=== PATIENT | female | born 1995 | race Caucasian/White ===

== ENCOUNTER 2024-07-27 19:30 | Emergency (ER) | payer OTHER, SELFPAY ==
--- NOTE | ~2024-07-27 | XR_ITS ---
CHEST RADIOGRAPH, PA AND LATERAL CLINICAL HISTORY: chest pain . COMPARISON: None available TECHNIQUE: PA and lateral views of the chest. FINDINGS The cardiomediastinal silhouette is unremarkable. The lungs are clear. Visualized osseous structures and soft tissues are unremarkable. IMPRESSION: No focal infiltrate or effusion. Reviewed, dictated and finalized at location A. ESH TECHNICIAN
--- NOTE | 2024-07-27 19:38 | ECG_ITS ---
Test Date: 2024-07-27 19:58:14 Measurements Intervals [place] Rate: 105 P: 48 [place]: 164 QRS: -3 QRSD: 108 T: 33 QT: 327 QTc: 433 Interpretive Statements SINUS TACHYCARDIA ABNORMAL RHYTHM ECG No previous ECG available for comparison Electronically Signed On 07-27-2024 23:45:13 CALL OUT OPERATOR by Bianka Colón M.D.
[2024-07-27 19:53] VITALS: BP 149/95; PULSE 105; RESP 20; TEMP 36.6; O2SAT 99
[2024-07-27 20:13] LABS: Basophils Absolute Auto 0.1 K/mm3 (0.0-0.1); Basophils Percent Auto 1.1 % (0.2-1.2); Eosinophils Absolute Auto 0.3 K/mm3 (0-0.3); Eosinophils Percent Auto 2.6 % (0-4.4); Hematocrit 43.2 % (37.0-47.0); Hemoglobin 14.7 g/dL (12.0-15.0); Immature Granulocyte Absolute 0.04 K/mm3 (0.00-0.031); Immature Granulocyte Percent A 0.3 % (0-0.5); Lymphocytes Absolute Auto 3.54 K/mm3 (0.9-3.2); Lymphocytes Percent Auto 28.9 % (18.3-44.2); Mean Corpuscular Hemoglobin 30.2 pg (26-34); Mean Corpuscular Volume 88.9 fl (80-100); Mean Platelet Volume 11.6 fl (7.4-10.4); Monocytes Absolute Auto 0.8 K/mm3 (0.1-0.6); Monocytes Percent Auto 6.4 % (2.6-8.5); Neutrophils Absolute Auto 7.4 K/mm3 (1.3-6.7); Neutrophils Percent Auto 60.7 % (45.5-73.1); Platelet Count Result 304 k/mm3 (150-375); Red Blood Count 4.86 M/mm3 (4.2-5.4); Red Cell Distribution Width 12.1 % (11.5-14.5); White Blood Count 12.2 K/mm3 (4.5-10.0)
[2024-07-27 20:23] LABS: Alanine Aminotransferase 47 U/L (6-35); Albumin Level 4.6 g/dL (3.5-5.1); Alkaline Phosphatase 90 U/L (38-126); Anion Gap 11 mmol/L (4-12); Aspartate Amino Transferase 30 U/L (14-36); Bilirubin,Total 0.6 mg/dL (0.2-1.3); Blood Urea Nitrogen 10 mg/dL (7-17); Calcium 9.4 mg/dL (8.4-10.2); Carbon Dioxide 26 mmol/L (22-30); Chloride 102 mmol/L (98-107); Estimated CRCL calculation 120 ml/min; Estimated Glomerular Filt Rate > 60; Glucose 112 mg/dL (65-110); Lipase 93 U/L (23-300); Potassium 3.7 mmol/L (3.4-5.0); Sodium 139 mmol/L (137-145)
[2024-07-27 20:26] LABS: Prothrombin Time 13.4 Seconds (11.1-14.7)
[2024-07-27 20:27] LABS: Partial Thromboplastin Time 32.3 Seconds (22.3-36.8)
[2024-07-27 20:34] LABS: Troponin I < 0.012 ng/mL (0.000-0.034)
--- NOTE | 2024-07-27 22:45 | ECG_ITS ---
Test Date: 2024-07-27 22:56:00 Measurements Intervals [place] Rate: 74 P: 50 WA: 171 QRS: 10 QRSD: 97 T: 37 QT: 381 QTc: 425 Interpretive Statements SINUS RHYTHM WITH SINUS ARRHYTHMIA LOW QRS VOLTAGE IN PRECORDIAL LEADS [QRS DEFLECTION < 1.0 mV IN CHEST LEADS] Compared to ECG 07/27/2024 19:58:14 Low QRS voltage now present Sinus tachycardia no longer present Electronically Signed On 07-27-2024 23:42:56 SECTION GANG by Bianka Colón M.D.
[2024-07-27 23:10] VITALS: BP 140/91; PULSE 75; RESP 20; O2SAT 100
[2024-07-27 23:12] VITALS: O2SAT 100
[2024-07-27 23:15] VITALS: BP 133/89; PULSE 78; RESP 16; O2SAT 100
[2024-07-27 23:30] VITALS: BP 130/91; PULSE 89; RESP 19; O2SAT 98
[2024-07-27 23:30] LABS: Troponin I < 0.012 ng/mL (0.000-0.034)
[2024-07-27 23:45] VITALS: BP 138/94; PULSE 68; RESP 12; O2SAT 100
--- NOTE | 2024-07-27 23:51 | ED.GENADULT ---
HPI - General Adult General Chief complaint: Chest Pain Stated complaint: chest pain Time Seen by Provider: 07/27/24 23:19 History of Present Illness HPI narrative: Patient 29-year-old female who presents emergency department chief complaint of chest discomfort. The patient reports that she started having some tightness in her chest worse with deep inspiration and reports that she had some indigestion with his well patient reports that she has had prior ablation for PVCs and reports that she has family history for cardiac disease. Related Data Allergies Allergy/AdvReac Type Severity Reaction Status Date / Time Sulfa (Sulfonamide Allergy Intermediate Rash Verified 07/27/24 19:32 Antibiotics) Review of Systems Review of Systems: A 10 system review of systems was completed on the patient and is negative except for what is stated in the HPI. Nursing and ancillary documentation was reviewed. Exam Narrative: GENERAL: Well-appearing, well-nourished, and in no acute distress. HEAD: Normocephalic, atraumatic. EYES: PERRLA and EOMI. ENT: Nares clear, no rhinorrhea or epistaxis. Mucous membranes moist. NECK: Supple. CHEST: Clear to auscultation. No respiratory distress. HEART: Regular rate and rhythm. No murmur heard. Normal peripheral pulses. ABDOMEN: Soft, nontender, nondistended, normal active bowel sounds. EXTREMITIES: Normal range of motion. No edema. SKIN: Warm, dry, no rash. NEURO: No focal deficits. Alert and oriented x3. PSYCH: Normal mood and affect. Course Vital Signs Vital signs: Vital Signs Temperature 36.6 C 07/27/24 19:53 Pulse Rate 105 H 07/27/24 19:53 Respiratory Rate 20 07/27/24 19:53 Blood Pressure 149/95 H 07/27/24 19:53 Pulse Oximetry 99 07/27/24 19:53 Temperature 36.6 C 07/27/24 19:53 Pulse Rate 75 07/27/24 23:10 Respiratory Rate 20 07/27/24 23:10 Blood Pressure 140/91 H 07/27/24 23:10 Pulse Oximetry 100 07/27/24 23:12 Oxygen Delivery Room Air 07/27/24 23:12 Medical Decision Making [facility] Narrative Medical decision making narrative: Differential diagnosis includes ACS, chest wall pain, costochondritis, electrolyte abnormality, Laboratory studies were obtained on the patient showed a normal CBC normal CMP troponin was negative lipase was negative Chest x-ray showed no focal infiltrate EKG showed no acute ischemic changes Vital Signs Vital Signs: Vital Signs Temperature 36.6 C 07/27/24 19:53 Pulse Rate 105 H 07/27/24 19:53 Respiratory Rate 20 07/27/24 19:53 Blood Pressure 149/95 H 07/27/24 19:53 Pulse Oximetry 99 07/27/24 19:53 Temperature 36.6 C 07/27/24 19:53 Pulse Rate 75 07/27/24 23:10 Respiratory Rate 20 07/27/24 23:10 Blood Pressure 140/91 H 07/27/24 23:10 Pulse Oximetry 100 07/27/24 23:12 Oxygen Delivery Room Air 07/27/24 23:12 Lab Data 07/27/24 20:04 07/27/24 20:04 Labs: Lab Results 07/27/24 07/27/24 Range/Units 20:04 22:53 WBC 12.2 H (4.5-10.0) K/mm3 RBC 4.86 (4.2-5.4) M/mm3 Hgb 14.7 (12.0-15.0) g/dL Hct 43.2 (37.0-47.0) % MCV 88.9 (80-100) fl MCH 30.2 (26-34) pg MCHC 34.0 (32-36) g/dl RDW 12.1 (11.5-14.5) % Plt Count 304 (150-375) k/mm3 MPV 11.6 H (7.4-10.4) fl Immature Gran % (Auto) 0.3 (0-0.5) % Neut % (Auto) 60.7 (45.5-73.1) % Lymph % (Auto) 28.9 (18.3-44.2) % Stanley % (Auto) 6.4 (2.6-8.5) % Eos % (Auto) 2.6 (0-4.4) % Baso % (Auto) 1.1 (0.2-1.2) % Lymph # (Auto) 3.54 H (0.9-3.2) K/mm3 Stanley # (Auto) 0.8 H (0.1-0.6) K/mm3 Eos # (Auto) 0.3 (0-0.3) K/mm3 Baso # (Auto) 0.1 (0.0-0.1) K/mm3 Abs Immat Gran (auto) 0.04 H (0.00-0.031) K/mm3 Absolute Neuts (auto) 7.4 H (1.3-6.7) K/mm3 Absolute Nucleated RBC 0.000 (0.0-0.012) K/mm3 Nucleated RBC % 0.0 (0.0-0.2) % PT 13.4 (11.1-14.7) Seconds INR 1.0 APTT 32.3 (22.3-36.8) Seconds Sodium 139 (137-145) mmol/L Potassium 3.7 (3.4-5.0) mmol/L Chloride 102 (98-107) mmol/L Carbon Dioxide 26 (22-30) mmol/L Anion Gap 11 (4-12) mmol/L BUN 10 (7-17) mg/dL Creatinine 0.66 L (0.7-1.0) mg/dL Estim Creat Clear Calc 120 ml/min Estimated GFR > 60 (59 - ) Glucose 112 H (65-110) mg/dL Calcium 9.4 (8.4-10.2) mg/dL Total Bilirubin 0.6 (0.2-1.3) mg/dL AST 30 (14-36) U/L ALT 47 H (6-35) U/L Alkaline Phosphatase 90 (38-126) U/L Troponin I < 0.012 < 0.012 (0.000-0.034) ng/mL Total Protein 8.0 (6.3-8.2) g/dL Albumin 4.6 (3.5-5.1) g/dL Lipase 93 (23-300) U/L Discharge Plan Discharge Clinical Impression: Atypical chest pain Patient Disposition: Home, Self-Care Condition: Stable Instructions: Antibiotic Form, Chest Pain (ED) Patient Language: Angolan Follow-up/Referrals: Eyad,Lauren Nelson APRN [Primary Care Provider] - Time of Disposition: 23:53
--- OUTSIDE RECORDS SUMMARY | 2024-07-27 23:54 | XMS_ITS | Encounter Summary ---
Author Organization [facility] Address [facility]. [place], [place] [address] [place] [address] Care Team Providers Care Wagon Winder Name Role Phone Shannen Loza Unavailable [phone] Justin Jackson MD Unavailable [phone] Shannen Loza Primary Care Provider [phone] Lauren Castano APRN Primary Care Provider + [phone] Encounter Details Date Type Department Care Team (Late st Contact Info) Description 04/22/2022 [place] Companiest Message Enc [facility] Medical Group Family & Internal Medicine [facility] [address] [place] [address] [place] [address] [place] [address] TuesdayMay 03 appointment Social History Tobacco Use Types Packs/Day Years Used Date Smoking Tobacco: Never Smokeless Tobacco: Never Alcohol Use Standard Drinks/Week Comments Yes 0 (1 standard drink = 0.6 oz pure alcohol) Probably once a month or less i drink AUDIT-C Answer Date Recorded Frequency of Alcohol Consumption 2-4 times a tue03/12/2019 Average Number of Drinks Not on file 019 Frequency of Binge Drinking Not on file 03/2019 PHQ-2 Answer Date Recorded PHQ-2 Score - If the patient scores above 3, please move on to questions 3-9 3 01/18/2022 Education Answer Date Recorded What is the highest level of school you have completed or the highest degree you have received? 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 [address] [place] [address] Suzan Michael, APPLICATIONS PROJECT MANAGER-C [address] [address] documented as of this encounter Visit Diagnoses Not on filedocumented in this encounter Additional Health Concerns Assessment Noted Time PHQ-9 Depression Total Score: 14 022 4:00 PM CDT documented as of this encounter Care Teams Wagon Winder Relationship Specialty Start [place] [address] [place], [place] [id number] PCP - General PHYSICIAN TELECOMMUNICATIONS MANAGER 12/16/21 05/09/23 Lauren Castano APRN [address] [address] PCP - General NURSE PRACTITIONER 05/10/23 Shannen Loza PA [address] [place] [address] PHYSICIAN TELECOMMUNICATIONS MANAGER 11/02/21 Justin Jackson MD Three [facility]. [address] [address] [place] Loan Review Analyst CARDIOVASCULAR DISEASE 06/19/19 documented as of this encounter
--- OUTSIDE RECORDS SUMMARY | 2024-07-27 23:54 | XMS_ITS | Encounter Summary ---
Author Organization [facility] Address [facility] [facility]. [place], [place] [address] [place] [address] Care Team Providers Care Classroom Coordinator Name Role Phone Brenda Gao NP Primary Care Provider Unav ailable Shannen Loza Primary Care Provider + [phone] None, Provider Primary Care Provider Unavaila ble Shannen Loza Unavailable [phone] Justin Jackson MD Unavailable [phone] Shannen Loza Primary Care Provider + [phone] Lauren Castano APRN Primary Care Provider + [phone] Encounter Details Date Type Department Care Team (Late st Contact Info) Description 01/11/2020 Zhongheeduhart Message Enc [facility] Medical Group Family & Internal Medicine [address] [address] Brenda Gao NP RE: Medication Questions Social History Tobacco Use Types Packs/Day Years Used Date Smoking Tobacco: Never Smokeless Tobacco: Never Alcohol Use Standard Drinks/Week Comments Yes 0 (1 standard drink = 0.6 oz pur e alcohol) AUDIT-C Answer Date Recorded Frequency of Alcohol Consumption 2-4 times a tue03/12/2019 Average Number of Drinks Not on file 019 Frequency of Binge Drinking Not on file 03/2019 PHQ-2 Answer Date Recorded PHQ-2 Score 1 05/30/2019 Education Answer Date Recorded What is the [...] 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 No / Unsure 01/14/2020 10:35 AM CDT documented as of this encounter Progress Notes * Alexa Silva RN - 01/11/2020 4:15 PM CDT Appt scheduled for 01/14. documented in this encounter Plan of Treatment Upcoming Encounters Date Type Department Care Team (Late st Contact Info) Description 09/04/2024 8:00 AM AIR CONDITIONER INSTALLER HELPER Office Visit [facility] Medical Group Family & Internal Medicine - [place] [address] [place] [address] Lauren Castano APRN [address] [place] [id number] 02/06/2025 9:00 AM CDT Telemedicine [facility] [address] [place] [phone] Suzan Michael, ASSEMBLY LINE WORKER-C [facility]. [address] [address] documented as of this encounter Visit Diagnoses Not on filedocumented in this encounter Additional Health Concerns Infection Onset Date Last Indicated Resolved Time COVID-19 Rule Out 03/31/2020 03/31/2020 04/01/2020 7:40 PM CDT Assessment Noted Time PHQ-9 Depression Total Score: 8 03/12/20 19 8:13 AM CDT documented as of this encounter Care Teams Classroom Coordinator Relationship Specialty Start Date End Date Brenda Gao NP PCP - General NURSE PRACTITIONER 06/13/19 08/13/21 Shannen Loza, PA [address] [place] [address] PCP - General PHYSICIAN RETURNED ITEM CLERK 10/05/21 11/01/21 Deepti, MD Antonia PCP - General 11/02/21 12/15/21 [place] [address] [place] [address] PCP - General PHYSICIAN RETURNED ITEM CLERK 12/16/21 05/09/23 Lauren Castano APRN [address] [address] PCP - General NURSE PRACTITIONER 05/10/23 Shannen Loza, PA [address] [place] [address] PHYSICIAN RETURNED ITEM CLERK 11/02/21 Justin Jackson MD [facility]. [address] [address] [place] Sanitation Worker Hosing Machinery CARDIOVASCULAR DISEASE 06/19/19 documented as of this encounter
--- OUTSIDE RECORDS SUMMARY | 2024-07-27 23:54 | XMS_ITS | Encounter Summary ---
Author Organization [facility] Address [address] [place] [address]. [place], [place] [address] [place] [address] Care Team Providers Care Final Inspector Balance Wheel Name Role Phone Brenda Gao NP Primary Care Provider Unav ailable Shannen Loza Primary Care Provider + [phone] None, Provider Primary Care Provider Unavaila ble Shannen Loza Unavailable [phone] Justin Jackson MD Unavailable [phone] Shannen Loza Primary Care Provider + [phone] Lauren Castano APRN Primary Care Provider + [phone] Encounter Details Date Type Department Care Team (Late st Contact Info) Description 03/25/2020 Pre-Procedure Call [place]'s Seat Covers Trimmer [address] [place] [address] Rodney Berger MD Three [facility]. 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 Not on file Not on file documented as of this encounter Plan of Treatment Upcoming Encounters Date Type Department Care Team (Late st Contact Info) Description 09/04/2024 8:00 AM C D AREA SUPERVISOR Office Visit [facility] Medical Group Family & Internal Medicine [facility] [address] [place] [address] Lauren Castano APRN [address] [phone] 02/06/2025 9:00 AM CDT Telemedicine [facility] [address] [place] [phone] Suzan Michael, MEDICAL IMAGING TECH-C [address] [address] documented as of this encounter Visit Diagnoses Not on filedocumented in this encounter Additional Health Concerns Infection Onset Date Last Indicated Resolved Time COVID-19 Rule Out 03/31/2020 03/31/2020 04/01/2020 7:40 PM CDT Assessment Noted Time PHQ-9 Depression Total Score: 8 03/12/20 19 8:13 AM CDT documented as of this encounter Care Teams Final Inspector Balance Wheel Relationship Specialty Start Date End Date Brenda Gao NP PCP - General NURSE PRACTITIONER 06/13/19 08/13/21 Shannen Loza PA [address] [place] [address] PCP - General PHYSICIAN REVIEW RN 10/05/21 11/01/21 Antonia Tatum MD PCP - General 11/02/21 12/15/21 [place] [address] [place] [address] PCP - General PHYSICIAN REVIEW RN 12/16/21 05/09/23 Lauren Castano APRN [address] [facility] [address] [place] [address] PCP - General NURSE PRACTITIONER 05/10/23 Shannen Loza, PA [address] [place] [address] PHYSICIAN REVIEW RN 11/02/21 Justin Jackson MD Three [facility]. [address] [address] Danielito Financial Supervisor CARDIOVASCULAR DISEASE 06/19/19 documented as of this encounter
--- OUTSIDE RECORDS SUMMARY | 2024-07-27 23:54 | XMS_ITS | Encounter Summary ---
Author Organization [facility] Address [facility]6 [facility]. [place], [place] [address] [place] [address] Care Team Providers Care Mixer Slagman Name Role Phone Brenda Gao NP Primary Care Provider Unav ailable Shannen Loza Primary Care Provider + [phone] None, Provider Primary Care Provider Unavaila ble Shannen Loza Unavailable [phone] Justin Jackson MD Unavailable [phone] Shannen Loza Primary Care Provider + [phone] Lauren Castano APRN Primary Care Provider + [phone] Encounter Details Date Type Department Care Team (Late st Contact Info) Description 05/02/2020 NuScriptRxt Message Enc [facility] Medical Group Family & Internal Medicine [address] [address] Brenda Gao NP RE: Medication [...] 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 No / Unsure 05/05/2020 9:47 AM INDUSTRIAL PARAMEDIC documented as of this encounter Plan of Treatment Upcoming Encounters Date Type Department Care Team (Late st Contact Info) Description 09/04/2024 8:00 AM INDUSTRIAL PARAMEDIC Office Visit [facility] Medical Group Family & Internal Medicine [facility] [address] [place] [address] Lauren Castano, LOAN DOCUMENTS CLOSER [address] [phone] 02/06/2025 9:00 AM CDT Telemedicine [facility] [address] [place] [address] Suzan Michael, ROUNDER AND BACKER-C [address] [address] documented as of this encounter Visit Diagnoses Not on filedocumented in this encounter Additional Health Concerns Assessment Noted Time PHQ-9 Depression Total Score: 8 03/12/20 19 8:13 AM CDT documented as of this encounter Care Teams Mixer Slagman Relationship Specialty Start Date End Date Brenda Gao NP PCP - General NURSE PRACTITIONER 06/13/19 08/13/21 Shannen Loza, PA [address] [place] [address] PCP - General PHYSICIAN ORACLE ERP DEVELOPER 10/05/21 11/01/21 Deepti, MD Antonia PCP - General 11/02/21 12/15/21 [place] [address] [place] [address] PCP - General PHYSICIAN ORACLE ERP DEVELOPER 12/16/21 05/09/23 Lauren Castano APRN [address] [facility] [address] [place] [address] PCP - General NURSE PRACTITIONER 05/10/23 Shannen Loza, PA [address] [place] [address] PHYSICIAN ORACLE ERP DEVELOPER 11/02/21 Justin Jackson MD [facility]. [address] [address] Danielito Adult Probation Officer CARDIOVASCULAR DISEASE 06/19/19 documented as of this encounter
--- OUTSIDE RECORDS SUMMARY | 2024-07-27 23:54 | XMS_ITS | Encounter Summary ---
Author Organization [facility] Address [facility]. [place], [place] [address] [place] [address] Care Team Providers Care Curb Supervisor Name Role Phone Brenda Gao NP Primary Care Provider Unav ailable Shannen Loza Primary Care Provider + [phone] None, Provider Primary Care Provider Unavaila ble Shannen Loza Unavailable [phone] Justin Jackson MD Unavailable [phone] Shannen Loza Primary Care Provider + [phone] Lauren Castano APRN Primary Care Provider + [phone] Encounter Details Date Type Department Care Team (Late st Contact Info) Description 10/05/[address] 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 Not on file Not on file documented as of this encounter Plan of Treatment Upcoming Encounters Date Type Department Care Team (Late st Contact Info) Description 09/04/2024 8:00 AM WOODS SUPERINTENDENT Office Visit [facility] Medical Group Family & Internal Medicine - [place] [address] [place] [address] Lauren Castano APRN [address] [id number] 02/06/2025 9:00 AM CDT Telemedicine [facility] [address] [place] [address] Suzan Michael, ASSOCIATE DESIGNER-C [address] [address] documented as of this encounter Visit Diagnoses Not on filedocumented in this encounter Additional Health Concerns Assessment Noted Time PHQ-9 Depression Total Score: 14 021 2:52 PM WOODS SUPERINTENDENT documented as of this encounter Care Teams Curb Supervisor Relationship Specialty Start Date End Date Brenda Gao NP PCP - General NURSE PRACTITIONER 06/13/19 08/13/21 Shannen Loza, PA [address] [place] [address] PCP - General PHYSICIAN INTEGRATED MARKETING MANAGER 10/05/21 11/01/21 None, Provider, PCP - General 11/02/21 12/15/21 [place] [address] [place] [address] PCP - General PHYSICIAN INTEGRATED MARKETING MANAGER 12/16/21 05/09/23 Lauren Castano APRN [address] [facility] [address] [place] [address] PCP - General NURSE PRACTITIONER 05/10/23 Shannen Loza PA [address] [place] [address] PHYSICIAN INTEGRATED MARKETING MANAGER 11/02/21 Justin Jackson MD Three [facility]. [address] [address] Danielito Mobile Marketing Specialist CARDIOVASCULAR DISEASE 06/19/19 documented as of this encounter
--- OUTSIDE RECORDS SUMMARY | 2024-07-27 23:54 | XMS_ITS | Encounter Summary ---
Author Organization [facility] Address [address] [place] [address]. [place], [place] [address] [place] [address] Care Team Providers Care It Program Auditor Name Role Phone Shannen Loza Unavailable [phone] Justin Jackson MD Unavailable [phone] Lauren Castano APRN Primary Care Provider [phone] Encounter Details Date Type Department Care Team (Late st Contact Info) Description 03/12/2024 Artabase Message Enc [facility] Medical Group Family & Internal Medicine [facility] [address] [place] [address] [facility] Julia Social History Tobacco Use Types Packs/Day Years [...] on file 03/2019 PHQ-2 Answer Date Recorded Patient Health Questionnaire-2 Score 1 12/13/2023 Education Answer Date Recorded What is the [...] 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 [address] [place] [address] Suzan Michael, MINE SAFETY ENGINEER-C [facility]. MAR[address] [place] [address] documented as of this encounter Visit Diagnoses Not on filedocumented in this encounter Additional Health Concerns Assessment Noted Time PHQ-9 Depression Total Score: 6 12/13/19 24 4:09 PM CDT documented as of this encounter Care Teams It Program Auditor Relationship Specialty Start Date End Date Lauren Castano APRN [address] [address] PCP - General NURSE PRACTITIONER 05/10/23 Shannen Loza PA [address] [place], [place] [address] PHYSICIAN AIRLINE DISPATCHER 11/02/21 Justin Jackson MD [facility]. [address] [place] [address] [place] Upper Lining Cementer CARDIOVASCULAR DISEASE 06/19/19 documented as of this encounter
--- OUTSIDE RECORDS SUMMARY | 2024-07-27 23:54 | XMS_ITS | Encounter Summary ---
Author Organization [facility] Address [facility]. [place], [place] [address] [place] [address] Care Team Providers Care Ambulance Dispatcher Name Role Phone Shannen Loza Unavailable [phone] Justin Jackson MD Unavailable [phone] Shannen Loza Primary Care Provider [phone] Lauren Castano APRN Primary Care Provider + [phone] Encounter Details Date Type Department Care Team (Late st Contact Info) Description 05/05/2022 [facility] [employer] Message Enc [facility] Family & Internal Medicine [facility] [address] [place] [address] [place] [address] [place] [address] Anxiety medication Social History Tobacco Use Types Packs/Day Years [...] 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 No / Unsure 05/03/2022 8:25 AM CDT documented as of this encounter Plan of Treatment Upcoming Encounters Date Type Department Care Team (Late st Contact Info) Description 09/04/2024 8:00 AM CENTRIFUGAL EXTRACTOR OPERATOR Office Visit [facility] Family & Internal Medicine - [place] [address] [place] [address] Lauren Castano APRN [address] [address] 02/06/2025 9:00 AM CDT Telemedicine [facility] [address] [place] [address] Suzan Michael, HIGHBALLER-C [address] [address] documented as of this encounter Visit Diagnoses Not on filedocumented in this encounter Additional Health Concerns Assessment Noted Time PHQ-9 Depression Total Score: 14 01/18/2 022 4:00 PM CDT documented as of this encounter Care Teams Ambulance Dispatcher Relationship Specialty Start [place] [address] [place], [place] [id number] PCP - General PHYSICIAN HABITAT CONSERVATION PLANNER 12/16/21 05/09/23 Lauren Castano APRN [address] [address] PCP - General NURSE PRACTITIONER 05/10/23 Shannen Loza PA [address] [place] [address] PHYSICIAN HABITAT CONSERVATION PLANNER 11/02/21 Justin Jackson MD [facility]. [address] [address] Danielito Club Waiter/Waitress CARDIOVASCULAR DISEASE 06/19/19 documented as of this encounter
--- OUTSIDE RECORDS SUMMARY | 2024-07-27 23:54 | XMS_ITS | Encounter Summary ---
Author Organization [facility] Address [address] [place] [address]. [place], [place] [address] [place] [address] Care Team Providers Care Dietary Manager Name Role Phone Brenda Gao NP Primary Care Provider Unav ailable Shannen Loza Primary Care Provider + [phone] None, Provider Primary Care Provider Unavaila ble Shannen Loza Unavailable [phone] Justin Jackson MD Unavailable [phone] Shannen Loza Primary Care Provider + [phone] Lauren Castano APRN Primary Care Provider + [phone] Encounter Details Date Type Department Care Team (Late st Contact Info) Description 08/22/2019 Usabilla Message Enc [facility] Family [facility] [address] [place] [address] [facility] Provider RE: Citalopram Social History Tobacco Use Types Packs/Day Years [...] 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 Not on file Not on file documented as of this encounter Plan of Treatment Upcoming Encounters Date Type Department Care Team (Late st Contact Info) Description 09/04/2024 8:00 AM CLINICAL PROFESSOR Office Visit [facility] Family & Internal Medicine - [place] [address] [place] [address] Lauren Castano APRN [address] [id number] 02/06/2025 9:00 AM CDT Telemedicine [facility] [address] [place] [address] Suzan Michael, STAFF COUNSELOR-C Three [address] [address] documented as of this encounter Visit Diagnoses Not on filedocumented in this encounter Additional Health Concerns Infection Onset Date Last Indicated Resolved Time COVID-19 Rule Out 03/31/2020 03/31/2020 04/01/2020 7:40 PM CDT Assessment Noted Time PHQ-9 Depression Total Score: 8 03/12/20 19 8:13 AM CDT documented as of this encounter Care Teams Dietary Manager Relationship Specialty Start Date End Date Brenda Gao NP PCP - General NURSE PRACTITIONER 06/13/19 08/13/21 Shannen Loza, PA [address] [place] [address] PCP - General PHYSICIAN SHAPING MACHINE TENDER 10/05/21 11/01/21 None, Provider, PCP - General 11/02/21 12/15/21 [place] [address] [place] [address] PCP - General PHYSICIAN SHAPING MACHINE TENDER 12/16/21 05/09/23 Lauren Castano APRN [address] [address] PCP - General NURSE PRACTITIONER 05/10/23 Shannen Loza, PA [address] [place] [address] PHYSICIAN SHAPING MACHINE TENDER 11/02/21 Justin Jackson MD Three [facility]. [address] [address] [place] Plow Mechanic CARDIOVASCULAR DISEASE 06/19/19 documented as of this encounter
--- OUTSIDE RECORDS SUMMARY | 2024-07-27 23:54 | XMS_ITS | Encounter Summary ---
Author Organization [facility] Address [address] [place] [address]. [place], [place] [address] [place] [address] Care Team Providers Care Car Rental Manager Name Role Phone None, Provider Primary Care Provider Brenda Long NP Primary Care Provider Unav ailable Shannen Loza Primary Care Provider + [phone] None, Provider Primary Care Provider Shannen Cruz Unavailable [phone] Justin Jackson MD Unavailable [phone] Shannen Loza Primary Care Provider + [phone] Lauren Castano APRN Primary Care Provider + [phone] Encounter Details Date Type Department Care Team (Late st Contact Info) Description 03/26/2019 MyChart Message Enc [facility] Family & Internal Medicine [address] [address] Brenda Gao NP RE: Medication Questions Social History Tobacco Use Types Packs/Day Years Used Date Smoking Tobacco: Every Day Cigarettes Smokeless Tobacco: Never Alcohol Use Standard Drinks/Week Comments Yes 0 (1 standard drink = 0.6 oz pur e alcohol) AUDIT-C Answer Date Recorded Frequency of Alcohol Consumption 2-4 times a tue03/12/2019 Average Number of Drinks Not on file 019 Frequency of Binge Drinking Not on file 03/2019 Education Answer Date Recorded What is the highest level of school you have completed or the highest degree you have received? Some college, no degree 03/12/2019 Comments Unknown Sex and Gender Information Value Date Recorded Sex Assigned at Female 03/12/2019 8:09 AM CDT Legal Sex Female 8:58 PM CDT Gender Identity Female 03/12/2019 8:09 AM CDT Sexual Orientation Straight 03/12/2019 8: 09 AM CDT documented as of this encounter Plan of Treatment Upcoming Encounters Date Type Department Care Team (Late st Contact Info) Description 09/04/2024 8:00 AM TIRE CLASSIFIER Office Visit [facility] Family & Internal Medicine - [place] [address] [place] [address] Lauren Castano APRN [address] [facility] [address] [place] [address] 02/06/2025 9:00 AM CDT Telemedicine [facility] [address] [place] [address] Suzan Michael, BALE BREAKER OPERATOR-C Three [address] [address] documented as of this encounter Visit Diagnoses Not on filedocumented in this encounter Additional Health Concerns Infection Onset Date Last Indicated Resolved Time COVID-19 Rule Out 03/31/2020 03/31/2020 04/01/2020 7:40 PM CDT Assessment Noted Time PHQ-9 Depression Total Score: 8 03/12/20 19 8:13 AM CDT documented as of this encounter Care Teams Car Rental Manager Relationship Specialty Start Date End Date None, Provider, PCP - General 02/04/19 06/12/19 Brenda Gao NP PCP - General NURSE PRACTITIONER 06/13/19 08/13/21 Shannen Loza, PA [address] [place] [address] PCP - General PHYSICIAN CLERICAL DENTIST ASSISTANT 10/05/21 11/01/21 None, ProviderMD PCP - General 11/02/21 12/15/21 [place] [address] [place] [address] PCP - General PHYSICIAN CLERICAL DENTIST ASSISTANT 12/16/21 05/09/23 Lauren [facility]N [address] [facility] [address] [address] PCP - General NURSE PRACTITIONER 05/10/23 Shannen Loza, PA [address] [place] [address] PHYSICIAN CLERICAL DENTIST ASSISTANT 11/02/21 Justin Jackson MD Three [facility]. [address] [address] Danielito Seismometer Operator CARDIOVASCULAR DISEASE 06/19/19 documented as of this encounter
--- OUTSIDE RECORDS SUMMARY | 2024-07-27 23:54 | XMS_ITS | Encounter Summary ---
Author Organization [facility] Address [address] [place] [address]. [place], [place] [address] [place] [address] Care Team Providers Care Cigar Making Supervisor Name Role Phone Shannen Loza Unavailable Justin Jackson MD Unavailable [phone] Lauren Castano APRN Primary Care Provider [phone] Encounter Details Date Type Department Care Team (Late st Contact Info) Description 10/04/2023 Wordster Message Enc [facility] Family & Internal Medicine - [place] [address] [place] [address] Lauren Castano APRN [address] [facility] [address] [place] [address] Tremor Social History Tobacco Use Types Packs/Day Years [...] Answer Date Recorded Patient Health Questionnaire-2 Score 3 08/08/2023 Education Answer Date Recorded What is the [...] 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 We can discuss some treatment options. * Mahogany Winston MA - 10/04/2023 1:45 PM CDT Please advise. documented in this encounter Plan of Treatment Upcoming Encounters Date Type Department Care Team (Late st Contact Info) Description 09/04/2024 8:00 AM HEAD WELL PULLER Office Visit [facility] Family & Internal Medicine - [place] [address] [place] [address] Lauren Castano APRN [address] [address] 02/06/2025 9:00 AM CDT Telemedicine [facility] [address] [place] [address] Suzan Michael, ISOTOPE HYDROLOGIST-C [facility]. [address] [address] documented as of this encounter Visit Diagnoses Not on filedocumented in this encounter Additional Health Concerns Assessment Noted Time PHQ-9 Depression Total Score: 13 08/08/2 024 9:58 AM HEAD WELL PULLER documented as of this encounter Care Teams Cigar Making Supervisor Relationship Specialty Start Date End Date Lauren Castano APRN [address] [facility] [address] [place] [address] PCP - General NURSE PRACTITIONER 05/10/23 Shannen Loza PA [address] [place] [address] PHYSICIAN HUNTER GUIDE 11/02/21 Justin Jackson MD [facility]. [address] [address] Danielito Bulbs Farmworker CARDIOVASCULAR DISEASE 06/19/19 documented as of this encounter
--- OUTSIDE RECORDS SUMMARY | 2024-07-27 23:54 | XMS_ITS | Clinical Summary ---
Author Organization [facility] Address [address] [place] [address]. [place], [place] [address] [place] [address] Care Team Providers Care Screen Printing Equipment Setter Name Role Phone Shannen Loza Unavailable [phone] Justin Jackson MD Unavailable [phone] Lauren Castano APRN Primary Care Provider [phone] Allergies Active Allergy Reactions Criticality Noted Date Comments Sulfa Antibiotics Rash Low 03/13/2013 Sulfa Antibiotics Rash Low 11/02/2021 Medications tretinoin (RETIN-A) 0.025 % creamIndications:A cne vulgaris Apply topically nightly at bedtime. 45 g 3 Active lisdexamfetamine (VYVANSE) 40 MG capsuleIndications :Attention deficit disorder (ADD) without hyperactivity Take 1 capsule (40 mg total) by mouth every morning. 30 capsule 4 Active Active Problems Problem Noted Date Diagnosed Date Hypertriglyceridemia 09/23/2023 Moderate episode of recurren t major depressive disorder ([facility]) 09/23/2023 Acne vulgaris 05/10/2023 Hypercholesterolemia 08/28/2020 Generalized anxiety disorder 08/28/2020 Acute nephritis 08/28/2020 Reduced libido 08/26/2019 Overview (08/08/2023): Decreased libido;Recorded Elsewhere: No Location: [facility] Source: EHR Chronic: N Practice ID: [id number] Billable Time: 03:00:00 PM Chest pain 07/19/2019 PVC (premature ventricular contraction) Palpitations Resolved Problems Problem Noted Date Diagnosed Date Resolved Date Depressive disorder 08/28/2020 09/23/19 24 Encounters Date Type Department Care Team Description 06/12/2024 8:00 AM GEAR REPAIR SUPERVISOR Office Visit [facility] Group Family & Internal Medicine [address] [address] Lauren Castano APRN Follow Up (Medication management) 06/12/2024 Travel from Last 3 Months Immunizations Name Administration Dates Next Due HPV4 (Gardasil) 11/27/2013,07/31/2013 PFIZER COVID-19 (BAUTISTA CAP), MRNA, LNP-S, PF, 30 MCG/0.3 ML ZAK-SUCROSE, IM 08/22/2021 Tdap (Generic) 06/22/2016 Family History Medical History Relation Comments Alcohol Abuse Brother 1 Early Brother 1 Heart attack 41 years old Heart Disease Brother 1 [place] Brother 2 Alcohol Abuse Father None Father None Mother Alcohol Abuse Sister Breast Cancer Neg Hx Relation Status Comments Brother 1 Brother 2 Father Alive Mother Alive Sister Social History Tobacco Use Types Packs/Day Years Used Date Smoking Tobacco: Never Smokeless Tobacco: Never Tobacco Cessation:Counseling Given: No Alcohol Use Standard Drinks/Week Comments Yes 0 (1 standard drink = 0.6 oz pure alcohol) Probably once a month or less i drink AUDIT-C Answer Date Recorded Frequency of Alcohol Consumption 2-4 times a tue03/12/2019 Average Number of Drinks Not on file 019 Frequency of Binge Drinking Not on file 03/2019 PHQ-2 Answer Date Recorded Patient Health Questionnaire-2 Score 0 06/12/2024 Education Answer Date Recorded What is the [...] 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 Not on file Last Filed Vital Signs Vital Sign Reading Time Taken Comments Blood Pressure 128/89 06/12/2024 8:07 AM GEAR REPAIR SUPERVISOR Pulse 90 06/12/2024 8:07 AM GEAR REPAIR SUPERVISOR Temperature 36.6 ??C (97.8 ??F) 06/12/2024 8:07 AM CS T Respiratory Rate 18 06/12/2024 8:07 AM GEAR REPAIR SUPERVISOR Oxygen Saturation 99% 06/12/2024 8:07 AM GEAR REPAIR SUPERVISOR Inhaled Oxygen Concentration - - Weight 104.8 kg (231 lb) 06/12/2024 8:07 AM GEAR REPAIR SUPERVISOR Height 162.6 cm (5' 4 ) 06/12/2024 8:07 AM GEAR REPAIR SUPERVISOR Body Mass Index 39.65 06/12/2024 8:07 AM GEAR REPAIR SUPERVISOR Plan of Treatment Upcoming Encounters Date Type Department Care Team (Late st Contact Info) Description 09/04/2024 8:00 AM GEAR REPAIR SUPERVISOR Office Visit [facility] Group Family & Internal Medicine [facility] [address] [place] [address] Lauren Castano, A[place] [address] [address] 02/06/2025 9:00 AM CDT Telemedicine [facility] [address] [place] [address] Suzan Michael, MACHINE WIPER-C [address] [address] Health Maintenance Due Date Last Done Comments HPV Vaccines (3 - 3-dose series) 02/19/2014 11/27/2013, 07/31/2013 Annual Physical 08/25/2021 08/25/2020 Cervical Cancer Screening Pa p with HPV Testing (Age 30 to 64) Every 5 Years 2024 PHQ-2 (Physician [facility]) 07/04/2024 06/12/2024 Cervical Cancer Screening Pa p Smear (Age 30 to 64) Every 3 Years 11/16/2024 11/16/2021, 09/01/2020 Cervical Cancer Screening with HPV 11/16/2024 COVID-19 Vaccine (2 - 2024-2 5 season) 2025 08/22/2021 Postponed from 03/04 (Patient Refused) Hepatitis B Vaccines (1 of 3 - 19+ 3-dose series) 06/12/2025 Postponed from 02/2013 (Patient/Guardian Refusal) Influenza Adult (#1) 2025 Postpon ed from 04/03/2024 (Patient Refused) DTaP, Tdap and Td Vaccines ( 2 - Td or Tdap) 06/22/2026 06/22/2016 Hepatitis C 06/12/2054 Postponed from 2012 (Patient Refused) Meningococcal B Vaccine Aged Out No l onger eligible based on patient's age to complete this topic Meningococcal Vaccine Aged Out No carmen amaya eligible based on patient's age to complete this topic Pneumococcal Vaccine: Pediatrics (0 to 5 Years) and At-Risk Patients (6 to 64 Years) Aged Out No longer eligible b ased on patient's age to complete this topic RSV Immunizations Under 20 Months Aged Out No longer eligible b ased on patient's age to complete this topic Insurance [facility] Advance Directives * Full Code (Latest Code Status on File) Date Activated Date Inactivated Comments 04/03/2020 3:44 PM 04/03/2020 9:48 PM Care Teams Screen Printing Equipment Setter Relationship Specialty Start Date End Date Lauren Castano APRN [address] [facility] [address] [place] [address] PCP - General NURSE PRACTITIONER 05/10/23 Shannen Loza PA [address] [place] [address] PHYSICIAN IT SOLUTIONS SALES CONSULTANT 11/02/21 Justin Jackson MD [facility]. [address] [address] [place] Physical Fitness Teacher CARDIOVASCULAR DISEASE 06/19/19
--- OUTSIDE RECORDS SUMMARY | 2024-07-27 23:54 | XMS_ITS | Encounter Summary ---
Author Organization [facility] Address Replaced by [facility]. [place], [place] [address] [place] [address] Care Team Providers Care Autopsy Pathologist Name Role Phone Brenda Gao NP Primary Care Provider Unav ailable Shannen Loza Primary Care Provider + [phone] None, Provider Primary Care Provider Unavaila ble Shannen Loza Unavailable [phone] Justin Jackson MD Unavailable [phone] Shannen Loza Primary Care Provider + [phone] Lauren Castano APRN Primary Care Provider + [phone] Encounter Details Date Type Department Care Team (Late st Contact Info) Description 01/07/[address] 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 Patient is due for 6 month follow up appt around 02/22. Do you want to see patient prior to an increase? documented in this encounter Plan of Treatment Upcoming Encounters Date Type Department Care Team (Late st Contact Info) Description 09/04/2024 8:00 AM MAILHOUSE OPERATOR Office Visit [facility] Family & Internal Medicine - [place] [address] [place] [address] Lauren Castano, SUPERVISOR ENDLESS TRACK VEHICLE [address] [place] [phone] 02/06/2025 9:00 AM CDT Telemedicine [facility] [address] [place] [address] Suzan Michael, GEOTECHNICAL OPERATING ENGINEER-C [address] [address] documented as of this encounter Visit Diagnoses Not on filedocumented in this encounter Additional Health Concerns Assessment Noted Time PHQ-9 Depression Total Score: 14 08/25/ 021 2:52 PM MAILHOUSE OPERATOR documented as of this encounter Care Teams Autopsy Pathologist Relationship Specialty Start Date End Date Brenda Gao NP PCP - General NURSE PRACTITIONER 06/13/19 08/13/21 Shannen Loza, PA [address] [place] [address] PCP - General PHYSICIAN PLASTER MIXER 10/05/21 11/01/21 Antonia Tatum MD PCP - General 11/02/21 12/15/21 [place] [address] [place] [address] PCP - General PHYSICIAN PLASTER MIXER 12/16/21 05/09/23 Lauren Castano APRN [address] [facility] [address] [place] [address] PCP - General NURSE PRACTITIONER 05/10/23 Shannen Loza, PA [address] [place] [address] PHYSICIAN PLASTER MIXER 11/02/21 Justin Jackson MD [facility]. [address] [address] [place] Social And Political Studies Professor CARDIOVASCULAR DISEASE 06/19/19 documented as of this encounter
--- OUTSIDE RECORDS SUMMARY | 2024-07-27 23:54 | XMS_ITS | Data Portability ---
Author Organization [facility] Address [address] [place] [address] Care Team Providers Care Administrative Clerk Name Role Phone KATELYN RIVERA Primary Care Provider Assessment Encounter Date Assessment Date Assessment LastModified by Organization Details LastModified Time 11/16/2021 11/16/2021 Annual gynecological exam performed. Patient will come back in a year unless there are new symptoms. [email or web address] Not available 11/16/2021 12:03:13 Plan of Treatment Reminders Order Date Submit Date Provider Last Modified By Organization Details Last Modified Time Details Appointments None recorded. Lab None recorded. Referral None recorded. Procedures None recorded. Surgeries None recorded. Imaging US, breast, unilateral - Right breast lump at 12 o'clock. 2cm in diameter and a little irregular. 2021 022 [facility], [address], [place] [address], [place], [address], 2 14:25:05 MAMMO, diagnostic, digital, bilateral 2021 022 [facility] (Imaging [facility] Mammogram), [facility] [place], [address], 3 15:55:58 US, breast, bilateral, complete 2021 022 [facility] (Imaging & Mammogram), [address] [place], [address], 3 15:31:00 Medication Orders None recorded. Patient TargetsNo targets recorded. Patient InstructionsNo instructions recorded. Reason for Referral None Reported. Results Created Date Observation Date Name Description Value Unit Range Abnormal Flag Note LastModifiedBy Organization Detail LastModifiedTime 09/02/19 21 09/01/2020 pap, IG Pap test SEE RESULT S BELOW CASE REPOR T: Cytol ogy Gynec ologi neelam Repor t Case: [id number] Autho ganesh pna Provi moiz: Audrey Durbin, CRISTIAN Colle cted: 09/01 1735 Order ing Locat ion: [place] Patho log[facility] Recei ирина: 09/02 1532 First Scree n: Faby Harris CT Speci men: Scree olvin Pap - Image d, Cervi x STATE MENT OF ADEQU ACY: Satis facto ry for evalu ation Trans forma tion zone compo nent prese nt FINAL DIAGN OSIS: Negat laura for Squam ous Intra epith elial Lesio n Elect jeni dangelo chelsy d by Faby Harris , CT on 021 at 2:16 PM ----- ----- ----- ----- ----- ----- ----- ----- ----- ----- ----- ----- ----- ----- ----- ----- ----- ----- - CHART ABLE COMME NT: Note: This speci men was revie wed by a Cytot echno logis t and/o r Patho logis t (as indic ated in this repor t) after evalu ation using the Thinp rep Imagi ng Syste m. CLINI NEELAM INFOR MATIO N: Menst rual Statu s: LMP (if appli cable ): Clini neelam Histo ry/Pr eviou s Pap: Type of Neopl gonzales (if appli cable ): Other Histo ry: Hormo lg (if appli cable ): PAP EDUCA ALPHONSO L NOTE: The Pap Test is a scree olvin test with an inher ent false negat laura rate. Liqui d-bas e sampl ing may decre ase, but will not elimi lucía, false negat laura resul ts. A negat laura resul t does not precl ude the prese nce and/o r devel opmen t of disea se, since the prese nce of abnor mal cells in the sampl e depen ds on the locat ion of the lesio n and sampl ing techn ique. Randall nued regul ar scree olvin is the best metho d of cance r preve ntion . If repor aron cytol ogic findi ng do not corre late with physi neelam and/o r histo rical findi ngs, furth er inves tigat ion is recom josh d, as clini jaja beauchamp nted. Not Available [facility] (Lab) [address], [place], [address], 09/03/2020 15:18:58 11/17/19 22 11/16/2021 IMAGE GUIDE D PAP, REFLE X HPV IF ASCUS ONLY image guided Pap, reflex HPV ASCUS only SEE RESULT S BELOW CASE REPOR T: Cytol ogy Gynec ologi neelam Repor t Case: [id number] Autho ganesh pan Provi moiz: Audrey Durbin, CRISTIAN Colle cted: 11/16 1625 Order ing Locat ion: [place] Patho [place]y Recei ирина: 11/17 0131 First Scree n: Teresa Roldan, CT Speci men: Scree olvin Pap - Image d, Cervi x STATE MENT OF ADEQU ACY: Satis facto ry for evalu ation Trans forma tion zone compo nent prese nt FINAL DIAGN OSIS: Negat laura for Intra epith elial Lesio n or Maleleanor otto (NIL) . Elect jeni dangelo chelsy d by Teresa Roldan, CT on 2021 at 10:36 AM ----- ----- ----- ----- ----- ----- ----- ----- ----- ----- ----- ----- ----- ----- ----- ----- ----- ---- COMME NT: Note: This speci men was revie wed by a Cytot echno logis t and/o r Patho logis t (as indic ated in this repor t) after evalu ation using the Thinp rep Imagi ng Syste m. CLINI NEELAM INFOR MATIO N: Menst rual Statu s: LMP (if appli cable ): Clini neelam Histo ry/Pr eviou s Pap: Type of Neopl gonzales (if appli cable ): Signi fican t Clini neelam Findi ngs: Other Histo ry: Hormo lg (if appli cable ): PAP EDUCA ALPHONSO L NOTE: The Pap Test is a scree olvin test with an inher ent false negat laura rate. Liqui d-bas ed sampl ing may decre ase, but will not elimi lucía, false negat laura resul ts. A negat laura resul t does not precl ude the prese nce and/o r devel opmen t of disea se, since the prese nce of abnor mal cells in the sampl e depen ds on the locat ion of the lesio n and sampl ing techn ique. Randall nued regul ar scree olvin is the best metho d of cance r preve ntion . If repor aron cytol ogic findi ng do not corre late with physi neelam and/o r histo rical findi ngs, furth er inves tigat ion is recom josh d, as clini jaja beauchamp nted. Not Available [facility] (Lab) [address], [place], [address], 11/21/2021 11:39:16 12/08/19 22 12/07/2021 US, deandre adam No observ ation record ed. [email or web address] [facility] [address], [place], [address], 12/17/2021 14:25:06 07/23/19 23 07/23/2022 US, breas t, bilat eral, compl ete No observ ation record ed. [address], [address], 08/02/2022 11:46:03 07/23/19 23 07/23/2022 MAMMO , diagn ostic , digit al, bilat eral No observ ation record ed. [address], [address], 08/02/2022 11:46:03 07/26/19 23 07/23/2022 US, breas t, bilat eral, compl ete No observ ation record ed. [address], [address], 08/02/2022 11:46:03 07/27/19 23 07/23/2022 US, breas t, unila teral No observ ation record ed. [email or web address] [facility] [address], [place], [address], 11/11/2022 16:02:02 07/27/19 23 07/23/2022 US, breas t, bilat eral, compl ete No observ ation record ed. jose juan [address], [address], 07/27/2022 15:59:16 Result Notes None recorded. Problems Name Problem SNOMED Code Status Onset Date Resolution Date Notes Provider Name and Address Organization Details Recorded Time Reduced libido 2931013 Completed 201908/29/2020 Decreased libido;Re corded Elsewhere : No Locati on: [facility] So urce: EHR Chron ic: N Practic e ID: [id number] Bill able Time: 03:00:00 PM Florencia pappas [place] [facility] 15:06:40 Educatio n Completed 201908/29/2020 Encounter for other general counselin g and advice on contracep tion;Brandon rded Elsewhere : No Locati on: [facility] So urce: EHR Chron ic: N Practic e ID: [id number] Bill able Time: 03:00:00 PM [facility] 15:06:37 Procedur e Completed 201908/29/2020 Encounter for checking, reinserti on or removal of implantab le subdermal contracep tive;Brandon rded Elsewhere : No Locati on: [facility] So urce: EHR Chron ic: N Practic e ID: [id number] Bill able Time: 03:00:00 PM Florencia Jha [facility], [facility] 15:06:38 Acute nephriti s 18660602 Completed 202008/29/2020 Florencia Jha [facility], [facility] 15:30:31 Depressi ve disorder 52215109 Active 2020 Florencia Doran [facility] 15:19:10 Generali zed anxiety disorder 90472252 [facility] 15:19:14 Hypercho lesterol emia 21779074 Active 2020 Florencia Doran [facility] 15:19:21 Problem Notes None recorded. Procedures Surgical History Date Name Laterality Status Provider Name and Address Organization Details Recorded Time 11/16/2021 Date of Last Pap Smear completed Deborah Martinez [facility] 01/23/2022 12:22:22 Imaging Results Imaging Date Name Status LastModified by Organiz [facility] Details LastModified Time 12/07/2021 US, breast, unilateral completed [email or web address] [facility] [address], [place], [address], 12/17/2021 14:25:06 07/23/2022 US, breast, bilateral, complete completed [address], [address], 08/02/2022 11:46:03 07/23/2022 MAMMO, diagnostic, digital, bilateral completed [address], [address], 08/02/2022 11:46:03 07/23/2022 US, breast, bilateral, complete completed [address], [address], 08/02/2022 11:46:03 07/23/2022 US, breast, unilateral completed [address], [place], [address], 11/11/2022 16:02:02 07/23/2022 US, breast, bilateral, complete completed [address], [address], 07/27/2022 15:59:16 Procedure Notes None recorded. Medical Equipment None Reported. Allergies Allergen ID Allergen Name Allergen Category Reaction Reaction Severity Criticality Documentation Date Start Date Code Code System Note Provider Name and Address Organization Details Recorded Time 36477 Substance with sulfonami de structure and antibacte rial mechanism of action (substanc e) medicatio n Not available Not available Not available 06/20/2020 42802 8003 RADHA pappas [place] [facility] 15:06:31 Medications Name Sig Start Date Stop Date Status Note LastModified by Organization Details LastModified Time buspirone 5 mg tablet TAKE 1 TABLET BY MOUTH TWICE DAILY 06/14 completed Not Available Not Available Not Available citalopra m 40 mg tablet TAKE 1 TABLET BY MOUTH ONCE DAILY 11/16 completed Not Available Not Available Not Available valacyclo vir 1 gram tablet TAKE 2 TABLETS BY MOUTH EVERY 12 HOURS FOR 1 DAY 06/13 completed Not Available Not Available Not Available clonazepa m 0.5 mg tablet take 1 tablet by oral route 3 times every day 09/01 completed Prescrib ed Umang e: No Locat ion: [facility] M odify By: susy arboleda DateTime : 08/17/19 09:47:02 AM Not Available Not Available Not Available spironola ctone 100 mg tablet 100 mg every day by oral route. active Not Available Not Available No t Available citalopra m 20 mg tablet TAKE TABLET BY MOUTH DAILY FOR 14 DAYS THEN INCREASE TO 1 TABLET DAILY. 11/16 completed Not Available Not Available Not Available aripipraz ole 10 mg tablet 5 mg every day by oral route. active Not Available Not Available No t Available atomoxeti ne 25 mg capsule TAKE 1 CAPSULE BY MOUTH ONCE DAILY 06/08 completed Not Available Not Available Not Available buspirone (bulk) 100 % powder 0.005 g twice a day by miscell. route. active Not Available Not Available No t Available aripipraz ole 5 mg tablet TAKE 1 TABLET BY MOUTH ONCE DAILY AT NIGHT AT BEDTIME 06/08 completed Not Available Not Available Not Available bupropion HCl XL 300 mg 24 hr tablet, extended release TAKE 1 TABLET BY MOUTH ONCE DAILY 06/08 completed Not Available Not Available Not Available bupropion HCl XL 150 mg 24 hr tablet, extended release 300 mg by oral route. active Not Available Not Available No t Available gabapenti n 11/16 completed Not Available Not Available Not Available Wellbutri n SR 11/16 completed Not Available Not Available Not Available Vitamin D3 125 mcg (5,000 unit) tablet 1 unit every day by oral route. active Not Available Not Available No t Available Fish Oil 720 mg-1,200 mg capsule 1 capsule every day by oral route. active Not Available Not Available No t Available Vitals Date Recorded Body height Body mass index (BMI) Body weight Systolic blood pressure Diastolic blood pressure Provider Name and Address Organization Details Last Updated DateTime 09/01/2020 170.18 cm 33.5 kg/m2 08276.77 g 121 mm[Hg] 83 mm[Hg] Florencia Jha [facility] 1 18:06:24 Date Recorded Body height Body mass index (BMI) Body weight Systolic blood pressure Diastolic blood pressure Provider Name and Address Organization Details Last Updated DateTime 11/16/2021 170.18 cm 34.5 kg/m2 14155.32 g 120 mm[Hg] 81 mm[Hg] Deborah Martinez [facility] 2 12:03:40 Date Recorded Body height Body mass index (BMI) Body weight Systolic blood pressure Diastolic blood pressure Provider Name and Address Organization Details Last Updated DateTime 06/14/2022 170.18 cm 34.5 kg/m2 93835.32 g 112 mm[Hg] 75 mm[Hg] Dayanna Phan [facility] 2 12:25:41 Social History Question Answer Notes LastModified by Organizat ion Details LastModified Time Tobacco Smoking Status Never Smoker Florencia Jha [facility], [facility] 08/29/2020 15:14:41 What Is Your Level Of Alcohol Consumption? Occasional Information not available 11/16/2021 Are You Blind Or Do You Have Difficulty Seeing? No Information n ot available 11/16/2021 What Is Your Level Of Caffeine Consumption? Occasional [email or web address] Information not available 11/16/2021 In The 14 Days Before Symptom Onset, Have You Had Close Contact With A Laboratory-confirm ed COVID-19 While That Case Was Ill? No [email or web address] Information n ot available 11/16/2021 In The 14 Days Before Symptom Onset, Have You Had Close Contact With A Person Who Is Under Investigation For COVID-19 While That Person Was Ill? No [email or web address] Information not available 11/16/2021 Have You Been To An Area Known To Be High Risk For COVID-19? No [email or web address] Information not available 11/16/2021 Are You Deaf Or Do You Have Serious Difficulty Hearing? No [email or web address] Information not available 11/16/2021 What Type Of Diet Are You Following? REGULAR [email or web address] Information n ot available 11/16/2021 Have You Ever Been Counseled For Unhealthy Alcohol Use? No [email or web address] Information not available 11/16/2021 Do You Use Your Seat Belt Or Car Seat Routinely? Yes [email or web address] Information not available 11/16/2021 Do You Have Smoke And Carbon Monoxide Detectors In Your Home? Yes [email or web address] Information not available 11/16/2021 Do You Feel Stressed (tense, Restless, Nervous, Or Anxious, Or Unable To Sleep At Night)? [id number] [email or web address] Information not available 11/16/2021 Do You Use Any Illicit Or Recreational Drugs? No [email or web address] Information not available 11/16/2021 Do You Use Sunscreen Routinely? Yes [email or web address] Information not available 11/16/2021 Has Tobacco Cessation Counseling Been Provided? No [email or web address] Information not available 11/16/2021 Do You Or Have You Ever Used Any Other Forms Of Tobacco Or Nicotine? No [email or web address] Information not available 11/16/2021 Sex: Female Functional Status Question Answer Note LastModified by Organizat ion Details LastModified Time Do you have difficulty walking or climbing stairs? No Information not available 11/16/2021 Are you able to walk? YESWOREST [email or web address] Information not available 11/16/2021 Are you able to care for yourself? Yes [email or web address] Information not available 11/16/2021 Do you have difficulty dressing or bathing? No [email or web address] Information not available 11/16/2021 What is your exercise level? Occasional [email or web address] Information not available 11/16/2021 Mental Status None recorded. Family History Relationship Description Onset Age of this Age Resolved Age Notes LastModified by Organization Details LastModified Time Mother Hypercholeslove altamirano [email or web address] Not available 2020 15:37:47 Brother Hypercholeslove altamirano [email or web address] Not available 2020 15:37:53 Brother Congenital heart disease [email or web address] Not available 2021 12:19:42 Maternal Uncle Hyperchrenard altamirano [email or web address] Not available 2020 15:37:57 Paternal Uncle Jessica altamirano Not available 2020 15:37:59 Medical History Condition Response Allergies (Food, seasonal, environmental ) N Other N Blood Transfusion N Breast Cancer N Drug/Latex Allergies/Reactions N Dermatologic Disorders N Lung Disease N Defects or Inherited Disease N Breast Problem N Gestational Diabetes N Hematologic disorders N Anesthesia Complications N History of STI Y Deep Vein Thrombosis N Polycystic ovary syndrome N Anxiety Disorder Y Autoimmune disease N Arthritis N Polyps N Infertility N Acid Reflux (GERD) N History of abnormal pap N Cancer N Varicosities N Stroke N Neurologic/Epilepsy N Endometriosis N High Cholesterol Y Fibromyalgia N Headaches N Kidney Disease N Heart Problems N Thyroid Problems N Kidney or Bladder Problems N GI Problems N Eating Disorder N Anemia N Art (IVF or FET) N Psychiatric Illness N Ovarian Cancer N Diabetes N Pulmonary (TB, Asthma) N Hepatitis/Liver Disease N No Past Medical History N Eczema N Urinary Tract Infection N Abuse/Domestic Violence N Asthma N Trauma/Violence N Depression/ depression Y Heart Disease N Pre-Eclampsia N Hypertension N Osteoporosis N Thrombophilias N Gynecological History Statement/Question Response Date of Last Mammogram Date of LMP 06/06/2022 Sexually Active? Y N STIs/STDs N Date of DEXA bone scan HPV Vaccine Y Date of Last Pap Smear 11/16/2021 Sexual Problems? N Current Control Method Partner Vas ectomy LMP Approximate N Obstetrics History GPAL:G 0 P 0 0 0 0 Type Value Living 0 Total 0 Past Encounters Encounter ID Performer Location Encounter Start Date Encounter Closed Date Diagnosis/Indication Diagnosis SNOMED-CT Code Diagnosis ICD10 Code Diagnosis Note [id number] Audery Pennyyimi [place] [address] [address] 09/01/2020 17:57:46 09/03/2020 22:41:05 Gynecologic examination 66640501 Z01.419 Take Calcium with Vitamin D 1200mg daily if not receiving in daily diet. It is strongly advised to have an annual flu shot and up can obtain at most pharmacies . If you have not had a TDap shot in the last 10 years you should obtain one as well. Discussed with patient & provided with informatio n regarding Gardisil vaccine to prevent the 4 strains for HPV that cause cervical cancer if under age 26. Encourage safe sexual practices, to use condoms and limit partners if not already in a monogamous relationsh ip. Do monthly self breast exams. Have mammogram yearly or every other year depending on family history. BRCA testing is now available for patients with strong genetic history of female cancer. If interested contact the office. Engage in daily exercise of low impact aerobic exercise 45-60 minutes 4-5 times weekly. Avoid tobacco and illicit drugs as well as using moderation with alcohol intake less than 1-2 8 oz beverages daily. This lifestyle behavior pattern will lead to less health conditions and longer life span. If BMI greater than 25 weight watchers or dietary consult advised. Patient received above instructio ns, and questions have been answered. If you have any questions please call or respond to this email. Patient was made aware of the patient portal and may obtain a paper copy of today's plan if desired. Missed period 12301069 N 92.5 Pt did not have cycle in Aug. She will be 3 months mid October. If no cycle by then and upt remains negative she will need to return for amenorrhea evaluation . Discussed importance of cycle atleast every 3 months. She is typically monthly. [id number] Audrey Tamez [place] [address] [address] 11/16/2021 11:50:23 11/17/2021 16:53:02 Gynecologic examination 20505356 Z01.419 Z11.51 Take Calcium with Vitamin D 1200mg daily if not receiving in daily diet. It is strongly advised to have an annual flu shot and up can obtain at most pharmacies . If you have not had a TDap shot in the last 10 years you should obtain one as well. Discussed with patient & provided with informatio n regarding Gardisil vaccine to prevent the 4 strains for HPV that cause cervical cancer if under age 26. Encourage safe sexual practices, to use condoms and limit partners if not already in a monogamous relationsh ip. Do monthly self breast exams. Have mammogram yearly or every other year depending on family history. BRCA testing is now available for patients with strong genetic history of female cancer. If interested contact the office. Engage in daily exercise of low impact aerobic exercise 45-60 minutes 4-5 times weekly. Avoid tobacco and illicit drugs as well as using moderation with alcohol intake less than 1-2 8 oz beverages daily. This lifestyle behavior pattern will lead to less health conditions and longer life span. If BMI greater than 25 weight watchers or dietary consult advised. Patient received above instructio ns, and questions have been answered. If you have any questions please call or respond to this email. Patient was made aware of the patient portal and may obtain a paper copy of today's plan if desired. Mass of right breast [id number] 0316177 N63.10 Diagnostic sameer and u/s ordered. If nl will rtc in 6 weeks. If abnormal imaging will schedule with specialist lizeth If nl imaging but lump persists at 6 week f/u will need to see specialist . Pt will call us 2 business days after imaging is done to check on results and schedule follow up. [id number] JAMEY Higgins [place] [address] [address] 06/14/2022 12:17:30 06/14/2022 13:02:05 Breast lump [id number] N63.0 Right breast mass noted at 12 o'clock, about 2cm in size, as well as right breast mass noted at 3 o'clock, about 2mm in size.Left breast with mass at 5 o'clock, about 1 cm in sizeWe agreed to pursue diagnostic mammogram and breast u/s for further evaluation Order given to patientOnc e imaging is complete, will consider breast specialist consultED precaution s discussed Time spent in visit is a total of 20 mins with at least 50% of visit consisting of counseling and review of plan of care. Pain of breast 02301069 N64.4 Health Concerns Section Related Observation LastModified by Organization Detai ls LastModified Time None Recorded Concern Status LastModified by Organization Details LastModified Time None Recorded Advance Directives Directive None Recorded Payers Encounter Date Sequence Insurance Name Policy Number Policy Mondragon Covered Member ID Mondragon Member ID Guarantor Name 09/01/2020 [facility] [id number] Anyi Abhijeet 11/16/2021 1 [facility] Abh[facility]et [id number] Anyi Abhijeet 06/14/2022 1 [facility] Anyi Abhijeet [id number] Anyi Abhijeet Notes Date Note Type Note Provider Name and Address Organization Details Recorded Time 09/01/2020 text/html Annual GYNReport ed bypatient.Menstrual cycle:Normal menses; LMP 1-12. Negative UPT. Urinary symptoms:No hematuria; No incontinence Vulva:No genital lesion Vagina:Normal vaginal discharge Breast:No breast pain; No breast lump; No nipple discharge Sexual complaints:No sexual complaints; No pain during intercourse; Normal libido Menopausal Symptoms:No menopausal symptoms; Normal vaginal lubrication Psychological symptoms:No depression; No anxiety; No PMDD Audrey pappas [facility] 09/01/2020 18:32:10 11/16/2021 text/html Annual GYNReport ed bypatient.Menstrual cycle:Normal menses; In general monthly. Occasionally will skip a cycle. Urinary symptoms:No hematuria; No incontinence Vulva:No genital lesion Vagina:Normal vaginal discharge Breast:No breast pain; No breast lump; No nipple discharge Sexual complaints:No sexual complaints; No pain during intercourse; Normal libido Menopausal Symptoms:No menopausal symptoms; Normal vaginal lubrication Psychological symptoms:No depression; No anxiety; No PMDD Audrey pappas [facility] 11/23/2021 07:38:31 06/14/2022 text/html 27yo [id number] for evaluation of persistant right breast lump, and new found left breast lumpRight breast lump found [facility] - right breast u/s normal - with recommendation to have mammogram done if lump persist.She still feels the right breast lumpNoticed new left breast lump 2 weeks ago, there is some tenderness when she touches the lumpShe denies any nipple discharge, redness, fevers, or signs of infectionLMP 2Partner with vasectomy for BC JAMEY Higgins [address], [place], [address], [place] [facility] 06/14/2022 12:46:20 OBGyn Episode Ob Episode Information Episode Created Date Number of Fetuses Patient Bloodtype Patient rh Status Prepregnancy Weight lbs Domestic Partner Domestic Partner Phone Father Name License Issuer Status 08/29/19 21 1 DELETED Abdirizak Calculation Initial Abdirizak Date Initial Exam Date Initial Exam Provider Initial Ultrasound Date Last Menstrual Period Date Ultra Sound Weeks Gestation 0 Eighteen To Twenty Week Abdirizak Update Ultra Sound Date Fundal Height At Umbil Quickening Date Ultra Sound Latest Weeks Gestation Final Abdirizak Confirmed By Final Abdirizak Confirmed Date Final Abdirizak Date Ultra Sound Latest Days Gestation 0 0 Menstrual History Last Menstrual Date Menses Monthly On Bcp Conception Prior Menses Frequency Hcg Plus Date Menarche Onset Age Delivery Information Delivery Date Delivery Type Labor Anesthesia Weeks Gestation Incision Type Labor Labor Length Hrs Delivered By Post Complications Tubal Sterilization Discharge Date Comments 2 Discharge Information Feeding Method Contraceptive Method Maternal HG B and HCT Levels Ob Episode Information Episode Created Date Number of Fetuses Patient Bloodtype Patient rh Status Prepregnancy Weight lbs Domestic Partner Domestic Partner Phone Father Name License Issuer Status 08/29/19 21 1 DELETED Abdirizak Calculation Initial Abdirizak Date Initial Exam Date Initial Exam Provider Initial Ultrasound Date Last Menstrual Period Date Ultra Sound Weeks Gestation 0 Eighteen To Twenty Week Abdirizak Update Ultra Sound Date Fundal Height At Umbil Quickening Date Ultra Sound Latest Weeks Gestation Final Abdirizak Confirmed By Final Abdirizak Confirmed Date Final Abdirizak Date Ultra Sound Latest Days Gestation 0 0 Menstrual History Last Menstrual Date Menses Monthly On Bcp Conception Prior Menses Frequency Hcg Plus Date Menarche Onset Age Delivery Information Delivery Date Delivery Type Labor Anesthesia Weeks Gestation Incision Type Labor Labor Length Hrs Delivered By Post Complications Tubal Sterilization Discharge Date Comments 9 Discharge Information Feeding Method Contraceptive Method Maternal HG B and HCT Levels
--- OUTSIDE RECORDS SUMMARY | 2024-07-27 23:54 | XMS_ITS | Encounter Summary ---
Author Organization [facility] Address [address] [place] [address]. [place], [place] [address] [place] [address] Care Team Providers Care Publications Production Supervisor Name Role Phone Shannen Loza Unavailable Justin Jackson MD Unavailable [phone] Lauren Castano APRN Primary Care Provider [phone] Encounter Details Date Type Department Care Team (Late st Contact Info) Description 08/18/2023 [place] Message Enc [facility] Medical Group Family & Internal Medicine [facility] [address] [place] [address] Lauren Castano APRN [address] [facility] [address] [place] [address] Coleen, I am not a fan Social History Tobacco Use Types Packs/Day Years [...] 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 Have her make a follow up and we can discuss other options if she would like. ORATE QUALITY ENGINEER * Jenni Ann RN - 08/22/2023 8:37 AM CST Please advise. Thanks! ORATE QUALITY ENGINEER documented in this encounter Plan of Treatment Upcoming Encounters Date Type Department Care Team (Late st Contact Info) Description 09/04/2024 8:00 AM CORPORATE QUALITY ENGINEER Office Visit [facility] Medical Group Family & Internal Medicine - [place] [address] [place] [address] Lauren Castano APRN [address] [address] 02/06/2025 9:00 AM CDT [facility]medicine [facility] [address] [place] [phone] Suzan Michael NP-C [address] [address] documented as of this encounter Visit Diagnoses Not on filedocumented in this encounter Additional Health Concerns Assessment Noted Time PHQ-9 Depression Total Score: 13 08/08/ 024 9:58 AM CORPORATE QUALITY ENGINEER documented as of this encounter Care Teams Publications Production Supervisor Relationship Specialty Start Date End Date Lauren Castano APRN [address] [facility] [address] [place] [address] PCP - General NURSE PRACTITIONER 05/10/23 Shannen Loza PA [address] [place] [address] PHYSICIAN CHRONOMETER REPAIRER 11/02/21 Justin Jackson MD Three [facility]. [address] [address] Archer Material Handler 1St Shift CARDIOVASCULAR DISEASE 06/19/19 documented as of this encounter
--- OUTSIDE RECORDS SUMMARY | 2024-07-27 23:54 | XMS_ITS | Encounter Summary ---
Author Organization [facility] Address [facility] [place], [place] [address] [place] [address] Care Team Providers Care Mash Preparatory Operator Name Role Phone Brenda Gao NP Primary Care Provider Unav ailable Shannen Loza Primary Care Provider + [phone] None, Provider Primary Care Provider Unavaila ble Shannen Loza Unavailable [phone] Justin Jackson MD Unavailable [phone] Shannen Loza Primary Care Provider + [phone] Lauren Castano APRN Primary Care Provider + [phone] Encounter Details Date Type Department Care Team (Late st Contact Info) Description 09/17/[address] [facility] [address] 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 No / Unsure 08/25/2020 2:31 PM ROLLER PICKER documented as of this encounter Plan of Treatment Upcoming Encounters Date Type Department Care Team (Late st Contact Info) Description 09/04/2024 8:00 AM ROLLER PICKER Office Visit [facility] Medical Group Family & Internal Medicine - [place] [address] [place] [address] Lauren Castano APRN [address] [id number] 02/06/2025 9:00 AM CDT Telemedicine [facility] [address] [place] [phone] Suzan Michael, ICICLE MACHINE OPERATOR-C [address] [address] documented as of this encounter Visit Diagnoses Not on filedocumented in this encounter Additional Health Concerns Assessment Noted Time PHQ-9 Depression Total Score: 14 021 2:52 PM ROLLER PICKER documented as of this encounter Care Teams Mash Preparatory Operator Relationship Specialty Start Date End Date Brenda Gao NP PCP - General NURSE PRACTITIONER 06/13/19 08/13/21 Shanenn Loza PA [address] [place] [address] PCP - General PHYSICIAN CORN SHREDDER 10/05/21 11/01/21 Antonia Tatum MD PCP - General 11/02/21 12/15/21 [place] [address] [place] [address] PCP - General PHYSICIAN CORN SHREDDER 12/16/21 05/09/23 Lauren Castano APRN [address] [facility] [address] [place] [address] PCP - General NURSE PRACTITIONER 05/10/23 Shannen Loza, PA [address] [place] [address] PHYSICIAN CORN SHREDDER 11/02/21 Justin Jackson MD [facility]. [address] [address] [employer] Education Director CARDIOVASCULAR DISEASE 06/19/19 documented as of this encounter
--- OUTSIDE RECORDS SUMMARY | 2024-07-27 23:54 | XMS_ITS | Encounter Summary ---
Author Organization [facility] Address [address] [place] [address]. [place], [place] [address] [place] [address] Care Team Providers Care Market Relationship Manager Name Role Phone Shannen Loza Unavailable [phone] Justin Jackson MD Unavailable [phone] Shannen Loza Primary Care Provider [phone] Lauren Castano APRN Primary Care Provider [phone] Encounter Details Date Type Department Care Team (Late st Contact Info) Description 01/11/2022 Ritani Message Enc [facility] Medical Group Family & Internal Medicine [facility] [address] [place] [address] [facility] Provider Routine follow up appt Social History Tobacco Use Types Packs/Day Years [...] 3, please move on to questions 3-9 6 11/02/2021 Education Answer Date Recorded What is the [...] 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 No / Unsure 12/16/2021 9:10 AM CDT documented as of this encounter Plan of Treatment Upcoming Encounters Date Type Department Care Team (Late st Contact Info) Description 09/04/2024 8:00 AM CHEESE SUPERVISOR Office Visit [facility] Medical Group Family & Internal Medicine - [place] [address] [place] [address] Lauren Castano APRN [address] [address] 02/06/2025 9:00 AM CDT Telemedicine [facility] [address] [place] [phone] Suzan Michael, PRIMARY TEACHING ASSISTANT-C [address] [address] documented as of this encounter Visit Diagnoses Not on filedocumented in this encounter Additional Health Concerns Assessment Noted Time PHQ-9 Depression Total Score: 19 022 2:21 PM CDT documented as of this encounter Care Teams Market Relationship Manager Relationship Specialty Start [place] [address] [place] [address] PCP - General PHYSICIAN ELECTRICIAN SOUND 12/16/21 05/09/23 Lauren Castano APRN [address] [address] PCP - General NURSE PRACTITIONER 05/10/23 Shannen Loza PA [address] [place] [address] PHYSICIAN ELECTRICIAN SOUND 11/02/21 Justin Jackson MD [facility]. MARV [address] [place] [address] Danielito Panel Edge Painter CARDIOVASCULAR DISEASE 06/19/19 documented as of this encounter
--- OUTSIDE RECORDS SUMMARY | 2024-07-27 23:54 | XMS_ITS | Encounter Summary ---
Author Organization [facility] Address [address] [place] [address]. [place], [place] [address] [place] [address] Care Team Providers Care Sander Hand Name Role Phone Shannen Loza Unavailable Justin Jackson MD Unavailable [phone] Lauren Castano APRN Primary Care Provider [phone] Encounter Details Date Type Department Care Team (Late st Contact Info) Description 08/11/2023 Anchor™ Message Enc [facility] Medical Group Family & Internal Medicine [facility] [address] [place] [address] Lauren Castano APRN [address] [facility] [address] [place] [address] Mailed scripts Social History Tobacco Use Types Packs/Day Years [...] 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 Not on file Not on file documented as of this encounter Plan of Treatment Upcoming Encounters Date Type Department Care Team (Late st Contact Info) Description 09/04/2024 8:00 AM NATIONAL INVESTIGATIVE PRODUCER Office Visit [facility] Medical Group Family & Internal Medicine - [place] [address] [place] [phone] Lauren Castano APRN [address] [address] 02/06/2025 9:00 AM CDT Telemedicine [facility] [address] [place] [phone] Suzan Michael, CARPENTER PROTOTYPE-C [facility] [address] [place], [place] [phone] documented as of this encounter Visit Diagnoses Not on filedocumented in this encounter Additional Health Concerns Assessment Noted Time PHQ-9 Depression Total Score: 13 024 9:58 AM NATIONAL INVESTIGATIVE PRODUCER documented as of this encounter Care Teams Sander Hand Relationship Specialty Start Date End Date Lauren Castano APRN [address] [address] PCP - General NURSE PRACTITIONER 05/10/23 Shannen Loza, PA [address] [place] [address] PHYSICIAN SPACE CONTROL AGENT 11/02/21 Justin Jackson MD [facility] [address] [place] [address] Danielito Supervisor Typesetting CARDIOVASCULAR DISEASE 06/19/19 documented as of this encounter
--- OUTSIDE RECORDS SUMMARY | 2024-07-27 23:54 | XMS_ITS | Encounter Summary ---
Author Organization [facility] Address [facility]. [place], [place] [address] [place] [address] Care Team Providers Care Biochemistry Technologist Name Role Phone Brenda Gao NP Primary Care Provider Unav ailable Shannen Loza Primary Care Provider + [phone] None, Provider Primary Care Provider Unavaila ble Shannen Loza Unavailable [phone] Justin Jackson MD Unavailable [phone] Shannen Loza Primary Care Provider [phone] Lauren Castano APRN Primary Care Provider + [phone] Encounter Details Date Type Department Care Team (Late st Contact Info) Description 12/31/2020 [employer] Message Enc [facility] Medical Group Family & Internal Medicine [address] [address] Brenda Gao NP RE: Medication [...] 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 No / Unsure 12/03/2020 8:15 AM CDT documented as of this encounter Progress Notes * Alexa Silva RN - 12/31/2020 3:18 PM CDT Please advise. documented in this encounter Plan of Treatment Upcoming Encounters Date Type Department Care Team (Late st Contact Info) Description 09/04/2024 8:00 AM PROCESS EXPERT Office Visit [facility] Medical Group Family & Internal Medicine - [place] [address] [place] [address] Lauren Castano APRN [address] [address] 02/06/2025 9:00 AM CDT Telemedicine [facility] [address] [place] [phone] Suzan Michael, INTERNAL CONTROLS SPECIALIST-C [place]. [address] [address] documented as of this encounter Visit Diagnoses Not on filedocumented in this encounter Additional Health Concerns Assessment Noted Time PHQ-9 Depression Total Score: 14 021 2:52 PM PROCESS EXPERT documented as of this encounter Care Teams Biochemistry Technologist Relationship Specialty Start Date End Date Brenda Gao NP PCP - General NURSE PRACTITIONER 06/13/19 08/13/21 Shannen Loza, PA [address] [place] [address] PCP - General PHYSICIAN PATCHING MACHINE OPERATOR 10/05/21 11/01/21 Anotnia Tatum MD PCP - General 11/02/21 12/15/21 [place] [address] [place] [address] PCP - General PHYSICIAN PATCHING MACHINE OPERATOR 12/16/21 05/09/23 Lauren Castano APRN [address] [address] [place] [address] PCP - General NURSE PRACTITIONER 05/10/23 Shannen Loza, PA [address] [place] [address] PHYSICIAN PATCHING MACHINE OPERATOR 11/02/21 Justin Jackson MD Three [facility]. [address] [address] Danielito Creative Assistant CARDIOVASCULAR DISEASE 06/19/19 documented as of this encounter
--- OUTSIDE RECORDS SUMMARY | 2024-07-27 23:54 | XMS_ITS | Encounter Summary ---
Author Organization [facility] Address [address] [place] [address]. [place], [place] [address] [place] [address] Care Team Providers Care Staff Pharmacist Hospital Name Role Phone Brenda Gao NP Primary Care Provider Unav ailable Shannen Loza Primary Care Provider + [phone] None, Provider Primary Care Provider Unavaila ble Shannen Loza Unavailable [phone] Justin Jackson MD Unavailable [phone] Shannen Loza Primary Care Provider + [phone] Lauren Castano APRN Primary Care Provider + [phone] Encounter Details Date Type Department Care Team (Late st Contact Info) Description 07/26/2019 [employer] Message Enc [facility] [address] [place] [address] [facility] Provider labs Social History Tobacco Use Types Packs/Day Years Used Date Smoking Tobacco: Never Cigarettes Smokeless Tobacco: Never Alcohol Use Standard [...] st Contact Info) Description 09/04/2024 8:00 AM CERTIFIED CAREGIVER Office Visit [facility] Medical Group Family & Internal Medicine - [place] [address] [place] [address] Lauren Castano, ADMINISTRATOR [facility] [address] [phone] 02/06/2025 9:00 AM CDT Telemedicine [facility] [address] [place] [phone] Suzan Michael, SHINGLE SHEARING MACHINE OPERATOR-C [address] [address] documented as of this encounter Visit Diagnoses Not on filedocumented in this encounter Additional Health Concerns Infection Onset Date Last Indicated Resolved Time COVID-19 Rule Out 03/31/2020 03/31/2020 04/01/2020 7:40 PM CDT Assessment Noted Time PHQ-9 Depression Total Score: 8 03/12/20 19 8:13 AM CDT documented as of this encounter Care Teams Staff Pharmacist Hospital Relationship Specialty Start Date End Date Brenda Gao NP PCP - General NURSE PRACTITIONER 06/13/19 08/13/21 Shannen Loza, PA [address] [place] [address] PCP - General PHYSICIAN CAPACITY PLANNING MANAGER 10/05/21 11/01/21 None, Provider, PCP - General 11/02/21 12/15/21 [place] [address] [facility] [place] [address] PCP - General PHYSICIAN CAPACITY PLANNING MANAGER 12/16/21 05/09/23 Lauren Castano APRN [address] [facility] [address] [place] [address] PCP - General NURSE PRACTITIONER 05/10/23 Shannen Loza PA [address] [place] [address] PHYSICIAN CAPACITY PLANNING MANAGER 11/02/21 Justin Jackson MD [facility]. [address] [address] Danielito Neuro Intensivist Physician CARDIOVASCULAR DISEASE 06/19/19 documented as of this encounter
[2024-07-28 00:15] VITALS: BP 125/77; PULSE 72; RESP 14; O2SAT 100
== END 2024-07-28 00:56 | disposition home or self-care (01) ==
PROVIDERS: Emergency Provider Emergency Medicine; PCP Registered Nurse
DX: R07.89 Other chest pain (principal)
CPT/HCPCS: 36415; 71046; 80053; 83690; 84484; 85025; 85610; 85730; 93005; 99284